=== PATIENT | female | born 1995 | race Caucasian/White ===

== ENCOUNTER 2020-09-28 06:55 | Inpatient (IN) | payer OTHER, SELFPAY ==
--- NOTE | 2020-09-27 21:12 | PM.IMHP ---
H&P: HPI History of Present Illness Date/Time: 09/27/20 21:12 Chief complaint: Pre-admit Narrative: Analilia Fowler is a 25 year old female 25 y/o F presents for IOL at 39w. c/b heterozygous MTFHR mutation,MDD,SAMEERA, Bipolar Review of Systems Review of Systems: All systems reviewed & are unremarkable except as noted in HPI and below Constitutional: Constitutional: Reports no additional constitutional complaints Eyes: Eyes: Reports no additional eye complaints ENT: Reports system reviewed and no additional complaints, except as documented Cardiovascular: Cardiovascular: Reports no additional cardiovascular complaints Respiratory: Respiratory: Reports no additional respiratory complaints Gastrointestinal: Gastrointestinal: Reports no additional gastrointestinal complaints Genitourinary: Genitourinary: Reports no additional female genitourinary complaints Musculoskeletal: Musculoskeletal: Reports no additional musculoskeletal complaints Integumentary/Breasts: Skin/Breast: Reports system reviewed and no additional complaints, except as docu Neurologic: Reports system reviewed and no additional complaints, except as documented Psychiatric: Psychiatric: Reports no additional psychiatric complaints Endocrine: Endocrine: Reports no additional endocrine complaints Hematologic/Lymphatic: Hematologic/Lymphatic: Reports no additional hematologic/lymphatic complaints Allergic/Immunologic: Allergic/Immunologic: Reports no additional allergic/immunologic complaints PMFSH Past Medical History Medical History (Updated 09/27/20 @ 21:31 by Irving Landaverde MD) Bipolar 1 disorder Chlamydia SAMEERA (generalized anxiety disorder) Heterozygous MTHFR mutation C677T IBS (irritable bowel syndrome) MDD (major depressive disorder) PCOS (polycystic ovarian syndrome) 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 Surgical History Surgical History (Updated 09/27/20 @ 21:25 by Irving Landaverde MD) History of knee surgery History of tonsillectomy and adenoidectomy Family History Family History (Updated 09/27/20 @ 21:26 by Irving Landaverde MD) Grandparent Diabetes mellitus Breast cancer Throat cancer Acute myocardial infarction Depression Heart disease Father Hypertension Depression Heart disease Mother Depression Heart disease Social History Social History (Updated 09/27/20 @ 21:27 by Irving Landaverde MD) Smoking packs per day: 1 Smoking cigarettes per day: 20.0 Years smoked: 8 Smoking pack-years: 8.00 Smoking status: Former smoker Tobacco type: cigarettes Second hand tobacco smoke exposure: Yes Alcohol intake: never Substance use: never Substance use type: does not use Living arrangements: with family Occupation/Education: occupation 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terosexual Spiritual care concerns: No Agree to blood products: Yes Meds Home Medications and Allergies Home Medications Medication Instructions Recorded Confirmed Type aspirin [Adult Low Dose Aspirin] 81 mg PO DAILY 09/05/20 09/05/20 History buspirone [BuSpar] 10 mg PO TID 09/05/20 09/05/20 History calcium carbonate-vitamin D3 1 tablet PO BID 09/05/20 09/05/20 History [Calcium 600 + D(3)] cyanocobalamin (vitamin B-12) 1,000 mcg SUBCUT MONTHLY 09/05/20 09/05/20 History folic acid 2 mg PO BID 09/05/20 09/05/20 History prenat.vits,kevin,ows-lyqn-aqbks 1 tablet PO DAILY 09/05/20 09/05/20 History [ #2] progesterone micronized 200 mg PO BID 09/05/20 09/05/20 History Allergies Allergy/AdvReac Type Severity Reaction Status Date / Larry
--- NOTE | 2020-09-27 21:15 | WPDHPUPDATE1 ---
History and Physical Update Update Date/Time: 09/27/20 21:15 History and Physical has been reviewed, including an updated exam of the patient. There are NO changes in the patient's condition. Risks, benefits, and alternatives have been discussed and questions answered. Patient agrees to proceed with procedure. Analilia Fowler is a 25 year old female 25 y/o F presents for IOL at 39w. c/b heterozygous MTFHR mutation,MDD,SAMEERA, Bipolar
--- NOTE | 2020-09-27 21:16 | WPDOBADMIT ---
Obstetrics - Admit Note Admission Note: record reviewed. No pertinent additions to the history and/or any subsequent changes in the physical findings that are not consistent with the expected course of the were found. Additions to the history and/or subsequent changes in the physical findings follow. None. Analilia Fowler is a 25 year old female 25 y/o F presents for IOL at 39w. c/b heterozygous MTFHR mutation,MDD,SAMEERA, Bipolar
[2020-09-28] VITALS (96 sets, daily range): BP systolic 93–150; BP diastolic 43–103; PULSE 58–198; RESP 16; TEMP 36.4–37; O2SAT 77–100; BMI 29.9
--- NOTE | 2020-09-28 07:29 | LDADM ---
This patient, Analilia Fowler, was admitted to Labor/Delivery/Recovery 107 on 09/28/20 at 06:55. Plans for labor, pain management and were discussed with patient. Patient/family oriented to hospital policies and general routines including ID bracelet, bed and alarms, visiting hours, pain management, procedures, bathroom and other care routines, personal items, smoking policy, room service/diet and guest tray routines, security routines, and visiting hours. Patient/Family are encouraged to report perceived risks to care and to ask questions if they do not understand what they are told or what they should do. See OBIX for further documentation.
[2020-09-28 07:43] LABS: Basophils Percent Auto 0.4 % (0.2-1.2); Eosinophils Percent Auto 0.4 % (0-4.4); Hematocrit 36.5 % (37.0-47.0); Hemoglobin 12.7 g/dL (12.0-15.0); Immature Granulocyte Absolute 0.05 K/mm3 (0.00-0.031); Immature Granulocyte Percent A 0.5 % (0-0.5); Lymphocytes Absolute Auto 2.31 K/mm3 (0.9-3.2); Lymphocytes Percent Auto 23.9 % (18.3-44.2); Mean Corpuscular HGB Conc 34.8 g/dl (32-36); Mean Corpuscular Hemoglobin 31.1 pg (26-34); Mean Corpuscular Volume 89.2 fl (80-100); Mean Platelet Volume 11.2 fl (7.4-10.4); Monocytes Absolute Auto 0.9 K/mm3 (0.1-0.6); Neutrophils Absolute Auto 6.3 K/mm3 (1.3-6.7); Neutrophils Percent Auto 65.8 % (45.5-73.1); Platelet Count Result 157 k/mm3 (150-375); Red Blood Count 4.09 M/mm3 (4.2-5.4); Red Cell Distribution Width 13.1 % (11.5-14.5); White Blood Count 9.7 K/mm3 (4.5-10.0)
[2020-09-28] MEDS: LACTATED RINGERS 1,000 ML 125 ML IV CONT ×2 (07:43→08:54)
[2020-09-28] MEDS: OXYTOCIN 30 UNITS/NS 500 ML 30 UNITS/500 ML BAG IV CONT (07:43)
[2020-09-28] MEDS: fentaNYL CITRATE INJ (*CRX) 100 MCG/2 ML VIAL 50 MCG IV PUSH (08:33)
--- NOTE | 2020-09-28 08:48 | WPDANESEPP ---
Anes - Eval Pre Procedure Procedure: labor Epidural Date/Time: 09/28/20 08:48 Surgeon: francois Preop Diagnosis: labor pain Pre Op Diagnosis: Induction of Labor Patient Data Age: 25 Gender: F Height: 1.55 m Weight: 72 kg Last Vital Signs Temp 36.4 C 09/28/20 07:30 Pulse 92 09/28/20 08:45 BP 132/84 09/28/20 08:45 Allergies Allergy/AdvReac Type Severity Reaction Status Date / Time codeine Allergy Unknown Itching Verified 09/05/20 12:36 Home Medications Medication Instructions Recorded Confirmed Type aspirin [Adult Low Dose Aspirin] 81 mg PO DAILY 09/05/20 09/28/20 History buspirone [BuSpar] 10 mg PO TID 09/05/20 09/28/20 History calcium carbonate-vitamin D3 1 tablet PO BID 09/05/20 09/28/20 History [Calcium 600 + D(3)] cyanocobalamin (vitamin B-12) 1,000 mcg SUBCUT MONTHLY 09/05/20 09/28/20 History folic acid 2 mg PO BID 09/05/20 09/28/20 History prenat.vits,kevin,zde-fizc-olgae 1 tablet PO DAILY 09/05/20 09/28/20 History [ #2] progesterone micronized 200 mg PO BID 09/05/20 09/28/20 History Laboratory Tests 09/28/20 09/28/20 07:37 07:38 WBC 9.7 K/mm3 K/mm3 (4.5-10.0) RBC 4.09 M/mm3 L M/mm3 (4.2-5.4) Hgb 12.7 g/dL g/dL (12.0-15.0) Hct 36.5 % L % (37.0-47.0) MCV 89.2 fl fl (80-100) MCH 31.1 pg pg (26-34) MCHC 34.8 g/dl g/dl (32-36) RDW 13.1 % % (11.5-14.5) Plt Count 157 k/mm3 k/mm3 (150-375) MPV 11.2 fl H fl (7.4-10.4) Immature Gran % (Auto) 0.5 % % (0-0.5) Neut % (Auto) 65.8 % % (45.5-73.1) Lymph % (Auto) 23.9 % % (18.3-44.2) Wagoner % (Auto) 9.0 % H % (2.6-8.5) Eos % (Auto) 0.4 % % (0-4.4) Baso % (Auto) 0.4 % % (0.2-1.2) Lymph # (Auto) 2.31 K/mm3 K/mm3 (0.9-3.2) Wagoner # (Auto) 0.9 K/mm3 H K/mm3 (0.1-0.6) Eos # (Auto) 0.0 K/mm3 K/mm3 (0-0.3) Baso # (Auto) 0.0 K/mm3 K/mm3 (0.0-0.1) Abs Immat Gran (auto) 0.05 K/mm3 H K/mm3 (0.00-0.031) Absolute Neuts (auto) 6.3 K/mm3 K/mm3 (1.3-6.7) Absolute Nucleated RBC 0.0 K/mm3 K/mm3 (0.0-0.012) Nucleated RBC % 0.0 % % (0.0-0.2) RPR Pending Patient hx anesthesia problems: none Family hx anesthesia problems: none PMFSH Past Medical History Medical History Bipolar 1 disorder Chlamydia SAMEERA (generalized anxiety disorder) Heterozygous MTHFR mutation C677T IBS (irritable bowel syndrome) MDD (major depressive disorder) PCOS (polycystic ovarian syndrome) 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 Georg[facility] Surgical History Surgical History History of knee surgery History of tonsillectomy and adenoidectomy Family History Family History Grandparent Diabetes mellitus Breast cancer Throat cancer Acute myocardial infarction Depression Heart disease Father Hypertension Depression Heart disease Mother Depression Heart disease Social History Social History Smoking packs per day: 1 Smoking cigarettes per day: 20.0 Years smoked: 8 Smoking pack-years: 8.00 Smoking status: Never smoker Tobacco type: cigarettes Second hand tobacco smoke exposure: Yes Alcohol intake: never Substance use: never Substance use type: does not use Living arrangements: with family Occupation/Education: occupation 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
--- NOTE | 2020-09-28 09:32 | PM.OBPNLAB ---
Pain Control Date/time seen: 09/28/20 09:00 Pain control: tolerating well and narcotic analgesia Pelvic Exam Dilation (cm): 3 Effacement (%): 75 station: -2 Amniotic membrane status: Intact Comments: Rupture membranes performed with amnio hook without difficulty intrauterine pressure catheter placed Contractions Monitor mode: External Contraction frequency: 2 Contraction duration: 45 Contraction pattern: Regular Contraction phase: Contraction Contraction intensity: Strong/Firm Status status: Category l Assessment and Plan Pitocin rate (mU/min): 2 Assessment: active labor and induction ongoing Plan: continuous present management and other (Epidural)
--- NOTE | 2020-09-28 14:10 | PM.OBPRVD ---
OB - Delivery Note Procedure Delivery date: 09/28/20 Procedure: Normal spontaneous vertex vaginal delivery a viable female infant and placenta Repair of first-degree perineal laceration events: Labor Induction Intrapartal events: None Induction method: per pitocin protocol Delivery augmentation: rupture of membranes Delivery monitor: external FHT and internal uterine Route of delivery: Laceration Description: Perineal - 1st Degree Delivery repair: vicryl (2 0) Specimen: Yes (Placenta, cord gases, cord blood) Quantitative Blood Loss: 100 Anesthesia type: Epidural Disposition: floor Complications: None Narrative: Normal spontaneous vertex vaginal delivery a viable female over intact perineum 1 push nuchal cord x1 reduced after delivery anterior shoulder delivered without difficulty infant placed on the maternal abdomen after the cord was reduced around the neck and arm. Spontaneous respirations and cry no observed abnormalities in the examination scores 8 and 9 weight 6 lb 15 oz taken to the nursery stable condition. Cord gas obtained cord blood obtained after cord clamped and cut. Placenta delivered spontaneous intact three-vessel cord uterus contracted well with Pitocin given intravenously. First-degree perineal laceration repaired with 2 0 Vicryl in a running fashion cervix and rectum were checked no sponges left vaginal fistula sphincters intact patient tolerated the procedure well in LDR room 1. 0 7 stable condition Counts correct Complications none VTE prevention not applicable patient ambulatory Antibiotics none Baby Date of : 09/28/20 Time of : 13:56 Weeks of gestation at delivery: 39 Infant gender: Female (Georgiana Zhao) Weight (pounds): 6 Weight (ounces): 15 presentation: vertex position: Left Occiput Anterior Placenta delivery description: Spontaneous and Normal Configuration cord vessel description: 3 Vessels, Nuchal Cord and Around Extremity x1 score one minute: 8 score five minutes: 9
--- NOTE | 2020-09-28 14:16 | PM.OBDSVD ---
DS: Admitting Diagnosis Admitting Diagnosis Admitting Diagnosis: Induction of Labor Term MTHFR mutation SAMEERA M DD Bipolar disorder DS: Discharge Diagnosis Discharge Diagnosis (1) Term delivered: Code(s): O80 - Encounter for full-term uncomplicated delivery Status: Acute (2) Elective induction of labor planned: Status: Acute (3) Bipolar 1 disorder: Code(s): F31.9 - Bipolar disorder, unspecified Status: Acute (4) MDD (major depressive disorder): Code(s): F32.9 - Major depressive disorder, single episode, unspecified Status: Acute (5) SAMEERA (generalized anxiety disorder): Code(s): F41.1 - Generalized anxiety disorder Status: Acute (6) Heterozygous MTHFR mutation C677T: Code(s): E72.12 - Methylenetetrahydrofolate reductase deficiency Status: Acute (7) First degree perineal laceration: Code(s): O70.0 - First degree perineal laceration during delivery Status: Acute OB - DS: Summary Hospital Course Time spent discussing smoking cessation with patient: 3 to 10 minutes OB Procedures : Ultrasound OB Procedures Intrapartum: Spontaneous Vag Delivery OB Procedures: : None Peripartum Data Infant Delivery Method: Natural Vaginal Laceration Description: Perineal - 1st Degree Episiotomy description: None Procedures: Normal spontaneous vertex vaginal delivery complications: none 1: Gender: Female (Georgiana Zhao) Disposition of : home Status at Discharge Functional status at discharge: independent ambulation Overall status at discharge: patient is back to baseline Time Spent with Patient Time attestation: Total time spent providing and/or coordinating discharge services: Time spent: Less than 30 minutes Exam Const: General: cooperative, healthy appearing, comfortable, no acute distress, well developed, alert, awake and Physically active Nutritional Appearance: average body habitus and well nourished Orientation/consciousness: patient oriented x3 Limitations: no limitations HENMT: Head: normal to inspection Eyes: General: appearance normal, both eyes and all related structures Neck: Neck: normal visual inspection and full ROM Chest: Chest palpation & inspection: normal inspection of the chest Breast/axilla inspection: normal inspection of the breasts Resp: Effort & Inspection: normal respiratory effort Auscultation: clear to auscultation bilaterally Cardio: Palpation: normal PMI Rate: regular rate Rhythm: regular rhythm Heart sounds: S1 normal heart sound present and S2 normal heart sound present GI: Inspection: normal to inspection GI Palp: Yes Soft to palpation Auscultation: normal bowel sounds : External Female Exam: normal external appearance Back/Spine/Pelvis: Back: no CVA tenderness Skin: General skin exam: normal color Neuro: General: patient oriented x3, tone normal, moves all extremities, Normal light touch and pain sensation, no meningeal signs, no focal motor deficits and CN's II-XI intact bilaterally Extrem: General: normal to inspection, full ROM, no pedal edema and no calf tenderness Psych: Appearance: grossly normal Mental Status: mental status grossly normal Affect: normal affect Attitude: cooperative Thought process: Normal thought process present Thought content: Yes Normal thought content present Insight: Good insight present (Psych) Judgement: Good judgement present (Psych) DS: Data Data Completed and Pending Labs on day of discharge: Labs from last 24 hours 09/28/20 09/28/20 09/28/20 07:38 07:37 07:37 WBC 9.7 RBC 4.09 L Hgb 12.7 Hct 36.5 L MCV 89.2 MCH 31.1 MCHC 34.8 RDW 13.1 Plt Count 157 MPV 11.2 H Immature Gran % (Auto) 0.5 Neut % (Auto) 65.8 Lymph % (Auto) 23.9 Cook % (Auto) 9.0 H Eos % (Auto) 0.4 Baso % (Auto) 0.4 Lymph # (Auto) 2.31 Cook # (Auto) 0.9 H
[2020-09-28] MEDS: OXYTOCIN 30 UNITS/NS 500 ML 30 UNITS/500 ML BAG 125 UNITS IV CONT (14:31)
[2020-09-28] MEDS: WITCH HAZEL 40 PADS 1 PAD TOPICAL (15:23)
[2020-09-28] MEDS: BENZOCAINE 20% AER SPR (*SP) 56 GM CAN 1 SPRAY TOPICAL (15:23)
[2020-09-28] MEDS: LORATADINE 10 MG TABLET PO (15:23)
--- NOTE | 2020-09-28 16:28 | PC.NURSE ---
Patient transferred to post room #280 via wheelchair. Support person present. Oriented to unit, room, information board, rooming in, admission packet and security measures. Patient verbalizes understanding.
[2020-09-28] MEDS: IBUPROFEN 600 MG TABLET PO ×2 (17:28→23:21)
[2020-09-28] MEDS: ACETAMINOPHEN 325 MG TABLET 650 MG PO (19:10)
[2020-09-29] MEDS: IBUPROFEN 600 MG TABLET PO ×2 (05:11→12:10)
[2020-09-29 05:41] LABS: Hematocrit 32.9 % (37.0-47.0); Hemoglobin 11.2 g/dL (12.0-15.0)
[2020-09-29] MEDS: busPIRone HCL 10 MG TABLET PO (07:32)
[2020-09-29] MEDS: ACETAMINOPHEN 325 MG TABLET 650 MG PO (07:33)
[2020-09-29 07:46] LABS: Rapid Plasma Reagin Non-Reactive (NonReactive)
[2020-09-29 07:50] VITALS: BP 146/94; PULSE 70; RESP 18; TEMP 36.7
--- NOTE | 2020-09-29 09:00 | WPDANLDPN2 ---
Anes-Prog Note L&D Date/Time: 09/29/20 09:00 Comfortable throughout: labor and delivery Neuraxial method: epidural Epidural/Spinal procedure site: clean & non-tender Neuro status: Neuro function grossly intact. Cardiovascular status: normal Respiratory status: normal Airway patency: baseline Mental status: baseline Post-Op hydration status: normal Vital Signs: Last Vital Signs Temp 36.7 C 09/28/20 20:00 Pulse 83 09/28/20 20:00 Resp 16 09/28/20 20:00 BP 137/88 09/28/20 20:00 Pulse Ox 100 09/28/20 20:00 Pain score (VAS): 0 I/O: Intake & Output 09/28/20 09/29/20 09/29/20 23:59 07:59 15:59 Intake Total 500 Balance 500 Post-procedural complaints: none Patient feedback: Patient satisfied with anesthetic care.
--- NOTE | 2020-09-29 10:16 | PM.OBPNVD ---
OB - PN: Subj Subjective Date/time seen: 09/29/20 10:16 Patient comments: no complaints baby status: doing well [place] feeding status: exclusively breast feeding OB - PN: Obj Data Labs CBC & Chem 7: 09/29/20 03:59 Labs: Laboratory Results - last 24 hr 09/28/20 09/29/20 07:37 03:59 Hgb 11.2 L Hct 32.9 L RPR Non-reactive OB - PN A/P Assessment and Plan (1) Term delivered: Code(s): O80 - Encounter for full-term uncomplicated delivery Status: Acute (2) Bipolar 1 disorder: Code(s): F31.9 - Bipolar disorder, unspecified Status: Acute (3) MDD (major depressive disorder): Code(s): F32.9 - Major depressive disorder, single episode, unspecified Status: Acute (4) SAMEERA (generalized anxiety disorder): Code(s): F41.1 - Generalized anxiety disorder Status: Acute Plan day: 1 Plan: routine care, discharge home and follow up 6 weeks Time Spent With Patient Time: Total time spent is greater than 50% in coordination of care (as documented) at patient's floor/unit and/or counseling patient: Review of Systems Review of Systems: All systems reviewed & are unremarkable except as noted in HPI and below Exam Const: General: cooperative, healthy appearing, comfortable, no acute distress, well developed, alert, awake and Physically active Nutritional Appearance: average body habitus and well nourished Orientation/consciousness: patient oriented x3 Limitations: no limitations HENMT: Head: normal to inspection Eyes: General: appearance normal, both eyes and all related structures Neck: Neck: normal visual inspection Chest: Chest palpation & inspection: normal inspection of the chest Resp: Effort & Inspection: normal respiratory effort Cardio: Rate: regular rate Rhythm: regular rhythm GI: Inspection: normal to inspection : External Female Exam: normal external appearance Back/Spine/Pelvis: Back: no CVA tenderness Skin: General skin exam: normal color Neuro: General: patient oriented x3, gait normal, tone normal, moves all extremities and Normal light touch and pain sensation Extrem: General: normal to inspection Psych: Appearance: grossly normal Mental Status: mental status grossly normal Speech and movement: Normal speech and movement present Affect: normal affect Attitude: cooperative Thought process: Normal thought process present Thought content: Yes Normal thought content present Insight: Good insight present (Psych) Judgement: Good judgement present (Psych)
--- NOTE | 2020-09-29 14:35 | PC.NURSE ---
Patient instructed on viewing the discharge video Mother & Baby Care, The First Two Weeks . Patient was given the opportunity and encouraged to ask questions. Patient verbalized understanding of information shared and has been given the mother/baby guide for home reference.
[2020-09-30 13:44] VITALS: BP 170/96; PULSE 55; RESP 16; TEMP 36.8; O2SAT 100
== END 2020-09-29 15:10 | disposition home or self-care (01) | DRG 560 ==
LOC: ANHLDR 14:22 → ANHOB2 16:35
PROVIDERS: Admitting Provider Obstetrics & Gynecology; PCP Emergency Medicine; Visit Provider Obstetrics & Gynecology
DX: O99.284 Endocrine, nutritional and metabolic diseases complicating childbirth (principal); Z37.0 Single live birth; Z3A.39 39 weeks gestation of pregnancy; E72.12 Methylenetetrahydrofolate reductase deficiency; O70.0 First degree perineal laceration during delivery; O99.344 Other mental disorders complicating childbirth; F31.9 Bipolar disorder, unspecified; F41.1 Generalized anxiety disorder; K58.9 Irritable bowel syndrome, unspecified; O99.62 Diseases of the digestive system complicating childbirth; E28.2 Polycystic ovarian syndrome; O69.82X0 Labor and delivery complicated by other cord entanglement, without compression, not applicable or unspecified
CPT/HCPCS: 36415; 85014; 85018; 85025; 86592; 86850; 86900; 86901; 88307; A9270; J2590; J2795; J3010; J7120

== ENCOUNTER 2020-09-30 14:42 | Observation (INO) | payer OTHER, SELFPAY ==
[2020-09-30] VITALS (17 sets, daily range): BP systolic 111–168; BP diastolic 74–107; PULSE 52–80; RESP 16–18; TEMP 36.9–37.1
--- NOTE | 2020-09-30 14:47 | PM.OBPNVD ---
OB - PN: Subj Subjective Date/time seen: 09/30/20 14:47 Patient comments: other (headache) OB - PN A/P Assessment and Plan (1) Preeclampsia in period: Code(s): O14.95 - Unspecified pre-eclampsia, complicating the puerperium Status: Acute Assessment and Plan: magnesium sulfate and labetolol Time Spent With Patient Time: Total time spent is greater than 50% in coordination of care (as documented) at patient's floor/unit and/or counseling patient: Review of Systems Review of Systems: All systems reviewed & are unremarkable except as noted in HPI and below Eyes: Eyes: Reports other visual disturbances ENT: Reports system reviewed and no additional complaints, except as documented Cardiovascular: Cardiovascular: Reports no additional cardiovascular complaints Respiratory: Respiratory: Reports no additional respiratory complaints Gastrointestinal: Gastrointestinal: Reports no additional gastrointestinal complaints Genitourinary: Genitourinary: Reports no additional female genitourinary complaints Musculoskeletal: Musculoskeletal: Reports no additional musculoskeletal complaints Integumentary/Breasts: Skin/Breast: Reports system reviewed and no additional complaints, except as docu Neurologic: Reports system reviewed and no additional complaints, except as documented Psychiatric: Psychiatric: Reports anxiety Endocrine: Endocrine: Reports no additional endocrine complaints Hematologic/Lymphatic: Hematologic/Lymphatic: Reports no additional hematologic/lymphatic complaints Allergic/Immunologic: Allergic/Immunologic: Reports no additional allergic/immunologic complaints Exam Const: General: cooperative HENMT: Head: normal to inspection Eyes: General: appearance normal, both eyes and all related structures Neck: Neck: normal visual inspection Chest: Chest palpation & inspection: normal inspection of the chest Resp: Effort & Inspection: normal respiratory effort Cardio: Rate: tachycardic Rhythm: regular rhythm GI: Inspection: normal to inspection : External Female Exam: normal external appearance Back/Spine/Pelvis: Back: no CVA tenderness Skin: General skin exam: normal color Neuro: General: patient oriented x3, gait normal, tone normal and moves all extremities Extrem: General: normal to inspection, full ROM and no calf tenderness Psych: Appearance: grossly normal Mental Status: mental status grossly normal Speech and movement: Normal speech and movement present Affect: normal affect Attitude: cooperative Thought process: Normal thought process present Thought content: Yes Normal thought content present Insight: Good insight present (Psych) Judgement: Good judgement present (Psych)
[2020-09-30] MEDS: LACTATED RINGERS 1,000 ML 75 ML IV CONT (15:24)
[2020-09-30] MEDS: MAGNESIUM SULF 4 GM/WATER100ML 4 GM/100 ML BAG IVPB (15:25)
[2020-09-30 15:33] LABS: Basophils Percent Auto 0.3 % (0.2-1.2); Eosinophils Absolute Auto 0.1 K/mm3 (0-0.3); Eosinophils Percent Auto 1.1 % (0-4.4); Hematocrit 37.6 % (37.0-47.0); Hemoglobin 13.3 g/dL (12.0-15.0); Immature Granulocyte Absolute 0.07 K/mm3 (0.00-0.031); Immature Granulocyte Percent A 0.6 % (0-0.5); Lymphocytes Absolute Auto 2.84 K/mm3 (0.9-3.2); Lymphocytes Percent Auto 23.6 % (18.3-44.2); Mean Corpuscular HGB Conc 35.4 g/dl (32-36); Mean Corpuscular Hemoglobin 31.4 pg (26-34); Mean Corpuscular Volume 88.9 fl (80-100); Mean Platelet Volume 11.2 fl (7.4-10.4); Monocytes Absolute Auto 0.7 K/mm3 (0.1-0.6); Monocytes Percent Auto 6.1 % (2.6-8.5); Neutrophils Absolute Auto 8.2 K/mm3 (1.3-6.7); Neutrophils Percent Auto 68.3 % (45.5-73.1); Platelet Count Result 207 k/mm3 (150-375); Red Blood Count 4.23 M/mm3 (4.2-5.4); Red Cell Distribution Width 13.2 % (11.5-14.5)
[2020-09-30] MEDS: MAGNESIUM SULF 20GM/WATER500ML 500 ML 50 MG IV CONT (15:53)
[2020-09-30 16:13] LABS: Alanine Aminotransferase 19 U/L (4-35); Albumin Level 3.3 g/dL (3.5-5.1); Alkaline Phosphatase 114 U/L (38-126); Anion Gap 5 mmol/L (8-16); Aspartate Amino Transferase 26 U/L (14-36); Bilirubin,Total 0.2 mg/dL (0.2-1.3); Blood Urea Nitrogen 13 mg/dL (7-17); Calcium 9.2 mg/dL (8.4-10.2); Carbon Dioxide 25 mmol/L (22-30); Chloride 107 mmol/L (98-107); Estimated Glomerular Filt Rate > 60; Glucose 79 mg/dL (65-105); Sodium 137 mmol/L (137-145); Uric Acid 5.1 mg/dL (2.5-7.5)
--- NOTE | 2020-09-30 19:08 | PC.NURSE ---
Dr De Luna informed of no need for Labetalol protocol. OK to start PO Labetalol as ordered.
[2020-09-30] MEDS: LABETALOL HCL 100 MG TABLET PO (20:08)
[2020-09-30] MEDS: ZOLPIDEM TARTRATE (*CRX) 5 MG TABLET PO (23:47)
[2020-10-01] VITALS (14 sets, daily range): BP systolic 115–137; BP diastolic 66–100; PULSE 73–88; RESP 16
[2020-10-01] MEDS: MAGNESIUM SULF 20GM/WATER500ML 500 ML 50 MG IV CONT (02:01)
[2020-10-01] MEDS: LACTATED RINGERS 1,000 ML 75 ML IV CONT (05:05)
[2020-10-01] MEDS: LABETALOL HCL 100 MG TABLET PO ×2 (08:45→18:37)
[2020-10-01] MEDS: POLYSACCHARIDE IRON COMPLEX 150 MG CAPSULE PO (08:45)
[2020-10-01] MEDS: MULTIVIT/MIN/PREN/FOL AC/IRON TABLET 1 TAB PO (08:45)
--- NOTE | 2020-10-01 10:28 | PC.NURSE ---
PLAN OF CARE DISCUSSED WITH DR AGUILA...WILL TURN OFF MAGNESIUM AT 1530 AND CONTINUE THE LABETALOL AT HOME.
--- NOTE | 2020-10-01 14:15 | PC.NURSE ---
PATIENT CALLED OUT C/O INABILITY TO LIFT LEFT ARM, CANNOT HOLD HER EYES OPEN WHILE TALKING, AND JUST DON'T FEEL RIGHT . DISCUSSED PLAN OF CARE WITH DR AGUILA AND WILL TURN OF MAGNESIUM EARLY AND WATCH BP'S UNTIL 6PM.
--- NOTE | 2020-10-01 18:11 | PC.NURSE ---
PLAN OF CARE DISCUSSED WITH DR AGUILA...WILL GIVE EXTRA LABETALOL AND CALL IN TO PHARMACY. HAVE HER CALL [facility] OFFICE FOR F/U ON BP
--- NOTE | 2020-10-01 18:28 | PM.OBDSVD ---
DS: Admitting Diagnosis Admitting Diagnosis Admitting Diagnosis: elevated bp pp DS: Discharge Diagnosis Discharge Diagnosis (1) Preeclampsia in period: Code(s): O14.95 - Unspecified pre-eclampsia, complicating the puerperium Status: Acute OB - DS: Summary Hospital Course Hospital Course: Patient readmitted for preeclampsia. Was placed on magnesium sulfate and PO labetalol 100mg BID started. BPs controlled throughout stay and patient remained stable. OB Procedures : None OB Procedures Intrapartum: Spontaneous Vag Delivery OB Procedures: : None Time Spent with Patient Time attestation: Total time spent providing and/or coordinating discharge services: Discharge Plan Discharge Attending physician on discharge: Chris De Luna Discharging Clinician: Chris De Luna Patient Disposition: Home, Self-Care Activity: may shower and as tolerated Diet: regular Discharge Instructions: OB ANTEPARTUM DISCHARGE INSTRUCTIONS This information is given to help you properly care for yourself at home after your discharge from the hospital. Follow these instructions until your doctor tells you otherwise. DIET: Additional Diet Instructions: ACTIVITY: Additional Activity Instructions: RETURN TO LABOR AND DELIVERY IF YOU HAVE: Additional Reasons to Return to Labor and Delivery: Contractions may feel like abdominal pain, tightening, cramping, pressure, back ache, or thigh ach OTHER INSTRUCTIONS: BLOOD PRESSURE HANDOUT GIVEN FOLLOW-UP CARE: CALL DR LANDAVERDE OFFICE FOR FOLLOW UP BLOOD PRESSURE CHECK AND PLACED ON LABETALOL 100MG TWICE A DAY Valuables released to patient or family? Medications from home returned to patient? IF YOU HAVE ANY QUESTIONS REGARDING THESE INSTRUCTIONS, PLEASE CALL [phone]. IF PROBLEMS ARISE, CALL YOUR PROVIDER. IF EMERGENCY CARE IS NEEDED, [facility] EMERG[facility]Y ROOM IS AVAILABLE 24 HOURS A DAY. Stand Alone Forms: General Discharge Information Follow-up/Referrals: Irving Landaverde MD [Physician] - Discharge Medications: New labetalol 100 mg tablet 100 mg PO Q12H Qty: 60 RF: 1 Continued cyanocobalamin (vitamin B-12) 1,000 mcg/mL Solution 1,000 mcg SUBCUT MONTHLY RF: 0 buspirone 10 mg Tablet 10 mg PO TID RF: 0 folic acid 1 mg Tablet 2 mg PO BID RF: 0 prenat.vits,kevin,hlu-wdni-fljgy Tablet 1 tablet PO DAILY RF: 0 calcium carbonate-vitamin D3 [Calcium 600 + D(3)] 600 mg(1,500mg) -400 unit Tablet 1 tablet PO BID RF: 0 ibuprofen 600 mg Tablet 600 mg PO Q6H Qty: 100 RF: 1 Discontinued aspirin 81 mg Tablet 81 mg PO DAILY RF: 0 Date of admission: 09/30/20 14:42 Primary Care Provider: Nagi You Admitting Provider: Irving Landaverde Attending physician on admission: Irving Landaverde Condition: Stable
== END 2020-10-01 18:34 | disposition home or self-care (01) ==
LOC: ANHOBOP 14:50 → ANHOBPP 14:50
PROVIDERS: Admitting Provider Obstetrics & Gynecology; PCP Emergency Medicine; Visit Provider Obstetrics & Gynecology
DX: O14.95 Unspecified pre-eclampsia, complicating the puerperium (principal)
CPT/HCPCS: 36415; 80053; 84550; 85025; 96365; 96366; 96376; A9270; G0378; G0379; J3475; J7120

== ENCOUNTER 2020-10-03 17:05 | Outpatient (CLI) | payer OTHER, SELFPAY ==
[2020-10-03] VITALS (11 sets, daily range): BP systolic 134–189; BP diastolic 83–97; PULSE 51–55
[2020-10-03] MEDS: LABETALOL HCL 100 MG TABLET 200 MG PO (17:48)
--- NOTE | 2020-10-03 19:12 | PC.NURSE ---
Dr. Landaverde called in for update. He will call in RX to her pharmacy for Labetolol 200 mg every 6 hours which is to be taken around the clock 6-12-6-12.
== END 2020-10-03 19:32 | disposition home or self-care (01) ==
LOC: ANHOBOP 17:08 → ANHOBPP 17:08
PROVIDERS: PCP Emergency Medicine; Visit Provider Obstetrics & Gynecology
DX: Z34.90 Encounter for supervision of normal pregnancy, unspecified, unspecified trimester (principal); Z3A.00 Weeks of gestation of pregnancy not specified
CPT/HCPCS: 99199; A9270

== ENCOUNTER 2020-11-25 22:11 | Emergency (ER) | payer OTHER, SELFPAY ==
[2020-11-25 22:21] VITALS: BP 118/85; PULSE 91; RESP 20; TEMP 36.7; O2SAT 97
--- NOTE | 2020-11-25 22:45 | PC.NURSE ---
patient brought back to ED room H3 with c/o dental pain. see initial notes. no change in condition. resting on stretcher. waiting for orders from provider.
--- NOTE | 2020-11-25 23:13 | ED.DENTAL ---
HPI - Dental/Oral General Chief complaint: Dental/Oral Stated complaint: dental pain Time Seen by Provider: 11/25/20 22:58 Source: patient Mode of arrival: ambulatory Limitations: no limitations History of Present Illness HPI Narrative: 25-year-old female Has a pair of upper bicuspids which have been broken/decayed to the gingiva for quite some time She reports that she saw a dentist about this relatively recently and has 2 see them again in early November for extractions She is having more discomfort from the broken teeth, more hot and cold sensitivity, and presents requesting pain medicine until she can see her dentist She has been taking ibuprofen which is getting less effective Onset (ago): week(s) Related Data Home Medications Medication Instructions Recorded Confirmed folic acid 2 mg PO BID 09/05/20 09/28/20 clonazepam 11/25/20 labetalol 200 mg PO QID 11/25/20 lamotrigine 11/25/20 paroxetine HCl mg PO 11/25/20 Allergies Allergy/AdvReac Type Severity Reaction Status Date / Time codeine Allergy Unknown Itching Verified 11/25/20 22:25 Review of Systems Constitutional: Constitutional: Denies fever(s) ENT: Denies sore throat Respiratory: Respiratory: Denies dyspnea PMF Past Medical History Medical History Bipolar 1 disorder Chlamydia SAMEERA (generalized anxiety disorder) Heterozygous MTHFR mutation C677T IBS (irritable bowel syndrome) MDD (major depressive disorder) PCOS (polycystic ovarian syndrome) 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 Surgical History Surgical History History of knee surgery History of tonsillectomy and adenoidectomy Family History Family History Grandparent Diabetes mellitus Breast cancer Throat cancer Acute myocardial infarction Depression Heart disease Father Hypertension Depression Heart disease Mother Depression Heart disease Social History Social History Smoking packs per day: 1 Smoking cigarettes per day: 20.0 Years smoked: 8 Smoking pack-years: 8.00 Smoking status: Never smoker Tobacco type: cigarettes Second hand tobacco smoke exposure: Yes Alcohol intake: never Substance use: never Substance use type: does not use 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 Gender identity (if verbalized by the patient): Female Spiritual care concerns: No Agree to blood products: Yes Exam Const: General: alert Orientation/consciousness: patient oriented x3 HENMT: Mouth: Yes Normal oral and palatal mucosa present Teeth and gingiva: abnormal tooth and associated gingiva Throat: posterior oropharynx normal Other: Bilateral upper bicuspids are broken/decayed to the gingiva There is mild bilateral maxillary sinus tenderness Eyes: Conjunctivae: conjunctivae normal EOM: EOMs intact bilaterally Neck: Neck: no lymphadenopathy Course Course Emergency Course: Described planned treatment with antibiotics and continuation of ibuprofen While paperwork was being prepared patient elmaloried Pen-Vee K prescription did go to her pharmacy Vital Signs Vital signs: Vital Signs Temperature 36.7 C 11/25/20 22:21 Pulse Rate 91 11/25/20 22:21 Respiratory Rate 20 11/25/20 22:21 Blood Pressure 118/85 11/25/20 22:21 Pulse Oximetry 97 11/25/20 22:21 Temperature 36.7 C 11/25/20 22:21 Pulse Rate 91 11/25/20 22:21 Respiratory Rate 20 11/25/20 22:21 Blood Pressure 118/85 11/25/20 22:21 Pulse Oximetry 97 11/25/20 22:21 Discharge Plan Discharge
--- NOTE | 2020-11-25 23:17 | PC.NURSE ---
patient with call light on. wants to leave. upset that
== END 2020-11-25 23:18 | disposition left against medical advice (07) ==
PROVIDERS: Emergency Provider Emergency Medicine; PCP Emergency Medicine
DX: K02.9 Dental caries, unspecified (principal); F31.9 Bipolar disorder, unspecified; F41.1 Generalized anxiety disorder; K58.9 Irritable bowel syndrome, unspecified; E28.2 Polycystic ovarian syndrome; E72.12 Methylenetetrahydrofolate reductase deficiency; F17.210 Nicotine dependence, cigarettes, uncomplicated
CPT/HCPCS: 99283

== ENCOUNTER → 2021-02-21 06:58 | Outpatient (CLI) | payer OTHER, SELFPAY ==
[2021-02-21 20:47] LABS: SARS-CoV-2 RNA PCR Negative
== END ==
PROVIDERS: PCP Emergency Medicine; Visit Provider Obstetrics & Gynecology
DX: Z01.812 Encounter for preprocedural laboratory examination (principal); Z20.822 Contact with and (suspected) exposure to COVID-19
CPT/HCPCS: C9803; U0003; U0005

== ENCOUNTER 2021-02-24 01:14 | Day surgery (SDC) | payer OTHER, SELFPAY ==
[2021-02-23 09:40] VITALS: BMI 21.5
--- NOTE | 2021-02-23 12:11 | WPDANESEPPF ---
Anes - Initial Pre Proc Eval Procedure: Operation Date: 02/24/21 11:15 Proposed Procedures p Hysteroscopy Dilation and Curettage, Intrauterine Device Removal - Irving Landaverde MD Date/Time: 02/23/21 12:11 Surgeon: Irving Landaverde MD Pre Op Diagnosis: embedded IUD Patient Data Age: 25 Gender: F Height: 1.55 m Weight: 51.7 kg Allergies Allergy/AdvReac Type Severity Reaction Status Date / Time codeine Allergy Unknown Itching Verified 02/23/21 09:36 Home Medications Medication Instructions Recorded Confirmed Type folic acid 2 mg PO BID 09/05/20 02/23/21 History clonazepam 1 mg PO DAILY 11/25/20 02/23/21 History labetalol 200 mg PO BID 11/25/20 02/23/21 History lamotrigine 50 mg PO BID 11/25/20 02/23/21 History citalopram 20 mg PO DAILY 02/23/21 02/23/21 History garlic 300 mg PO DAILY 02/23/21 02/23/21 History ibuprofen 600 mg PO Q6H PRN 02/23/21 02/23/21 History no.144-folic acid 1 tablet PO DAILY 02/23/21 02/23/21 History [] vitamin B complex [B Complex] 1 tablet PO DAILY 02/23/21 02/23/21 History vitamin R78-ugbek acid 1 tablet PO DAILY 02/23/21 02/23/21 History Patient hx anesthesia problems: none Family hx anesthesia problems: none PMFSH Past Medical History Medical History (Updated 02/24/21 @ 07:10 by Irving Landaverde MD) Bipolar 1 disorder Chlamydia SAMEERA (generalized anxiety disorder) Heterozygous MTHFR mutation C677T IBS (irritable bowel syndrome) MDD (major depressive disorder) PCOS (polycystic ovarian syndrome) 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NP[facility] Dr. Georges Vaginal delivery [id number] # fetuses1 Fetus 1Full Term F 6 lbs 15 oz Standard Vaginal Delivery Gestational age39.1 weeks.day AnesthesiaRegional-Epidural Delivery [facility] Surgical History Surgical History (Updated 02/24/21 @ 07:10 by Irving Landaverde MD) H/O oral surgery History of knee surgery History of tonsillectomy and adenoidectomy Family History Family History Grandparent Diabetes mellitus Breast cancer Throat cancer Acute myocardial infarction Depression Heart disease Father Hypertension Depression Heart disease Mother Depression Heart disease Social History Social History Smoking packs per day: 0.5 Smoking cigarettes per day: 10.0 Years smoked: 9 Smoking pack-years: 4.50 Smoking status: Current every day smoker Tobacco type: cigarettes Second hand tobacco smoke exposure: Yes Alcohol intake: current Alcohol use details: VERY RARELY Substance use: never Substance use type: does not use Living arrangements: with family 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 Gender identity (if verbalized by the patient): Female Spiritual care concerns: No Agree to blood products: Yes Anes - Eval Final PreProcedure Day of Procedure 02/23/21 12:11 Patient weight: normal Heart: regular rate and rhythm Lungs: clear to auscultation and normal air movement Airway: Mallampati scale class II Neurological: alert and oriented Last oral intake: >/= 8 hours ASA classification: III Emergent: no Anesthetic plan: proceed Anesthesia type and monitoring: general GIVS and standard monitoring Informed Consent: The patient's anesthetic plan and its attendant risks and benefits were discussed with the patient/family/POA. Questions were solicited and answers provided to the satisfaction of the patient/family/POA.
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
[2021-02-24 09:50] VITALS: BP 121/72; PULSE 82; RESP 16; TEMP 37.8
[2021-02-24] MEDS: LACTATED RINGERS 1,000 ML 30 ML IV CONT (10:00)
[2021-02-24] MEDS: ACETAMINOPHEN 500 MG TABLET 1000 MG PO (10:01)
[2021-02-24 10:14] LABS: Hematocrit 39.3 % (37.0-47.0); Hemoglobin 13.6 g/dL (12.0-15.0)
[2021-02-24] MEDS: BUPIVACAINE HCL 0.25% PF 30 ML VIAL INFILTRATE (11:00)
[2021-02-24] MEDS: ceFAZolin SODIUM 1 GM VIAL 2 GM IV PUSH (11:05)
--- NOTE | 2021-02-24 11:11 | SUR.OPER ---
Hysteroscopy irrigation 900ml IVNS in and 800 ml IVNS out
[2021-02-24 11:22] VITALS: BP 126/79; PULSE 73; RESP 16; O2SAT 100
--- NOTE | 2021-02-24 11:24 | P.OP_ITS ---
Procedure Note - Detailed Date of procedure: 02/24/21 Pre-op diagnosis: embedded IUD Retained IUD, pelvic pain Post-op diagnosis: same (successful iud removal) Procedure performed: Hysteroscopy dilatation and curettage hysteroscopic removal of retained IUD Description of procedure: Informed consent obtained patient was taken to the operating room given IV Thatch general anesthesia LMA was placed and she was placed in the dorsal lithotomy position and then prepped and draped in the usual sterile fashion and a time-out was performed. Speculum was placed in the vagina single-tooth tenaculum placed on the anterior lip of the cervix uterus sounded to 7 cm. Hegar dilation to a 8. Followed by hysteroscopic examination of the uterine cavity using saline as the distending media visualizing retained ParaGard copper IUD. Hysteroscopic grasping forceps was used to remove IUD without difficulty further evaluation of the uterine cavity revealed normal tubal ostia normal but inflamed isthmic normal anterior posterior endometrium and cervix. Sharp curettage of the endometrial cavity and removal of endometrial glands and stroma was then performed. The single-tooth tenaculum was removed hemostasis was excellent. Patient was extubated in the operating room taken recovery room stable condition Implants: None Anesthesia: GETA Surgeon: Irving Landaverde MD Lapping Machine Operator: speech pathology assistant x1 Estimated blood loss (mL): 10 IV fluids (mL): 1,000 Urine output (mL): 100 Drains: No Packing: No Pathology: yes (ParaGard copper IUD and endometrial curettings) Complications: None Condition: stable Disposition: same day Findings: Retained copper IUD ParaGard removed successfully normal tubal ostia normal anterior posterior endometrium normal cervix normal is hemostasis excess Counts correct Complications none VTE STDs Antibiotic prophylaxis Ancef 2 g To recovery room stable condition
[2021-02-24] MEDS: fentaNYL CITRATE INJ (*CRX) 100 MCG/2 ML VIAL 25 MCG IV PUSH ×4 (11:31→11:50)
[2021-02-24 11:50] VITALS: BP 130/85; PULSE 61; RESP 16; O2SAT 100
[2021-02-24 12:10] VITALS: BP 132/87; PULSE 55; RESP 16; O2SAT 100
== END 2021-02-24 12:23 | disposition home or self-care (01) ==
PROVIDERS: Anesthesiology; PCP Emergency Medicine; Visit Provider Obstetrics & Gynecology
PROC: 0U5B8ZZ Destruction of Endometrium, Via Natural or Artificial Opening Endoscopic (ICD-10-PCS; CPT 58563; principal; 2021-02-24 11:15)
DX: T83.39XA Other mechanical complication of intrauterine contraceptive device, initial encounter (principal); R10.2 Pelvic and perineal pain; Z91.410 Personal history of adult physical and sexual abuse; F31.9 Bipolar disorder, unspecified; F41.1 Generalized anxiety disorder; M06.9 Rheumatoid arthritis, unspecified; F17.210 Nicotine dependence, cigarettes, uncomplicated; X58.XXXA Exposure to other specified factors, initial encounter
CPT/HCPCS: 58562; 36415; 85014; 85018; 88305; A9270; J0690; J2250; J2704; J3010; J7030; J7120

== ENCOUNTER 2021-07-28 14:59 | Emergency (ER) | payer OTHER, SELFPAY ==
[2021-07-28 16:19] VITALS: BP 142/91; PULSE 99; RESP 14; TEMP 36.9; O2SAT 99
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
[2021-07-28] MEDS: SILVER SULFADIAZINE 1% CR 50 GM JAR (*BKC) 1 APPLIC TOPICAL (18:15)
[2021-07-28 18:30] VITALS: BP 136/84; PULSE 88; RESP 16; O2SAT 99
== END 2021-07-28 18:30 | disposition home or self-care (01) ==
PROVIDERS: Emergency Provider Emergency Medicine; PCP Emergency Medicine
DX: T24.231A Burn of second degree of right lower leg, initial encounter (principal); T31.0 Burns involving less than 10% of body surface; E28.2 Polycystic ovarian syndrome; M06.9 Rheumatoid arthritis, unspecified; K58.9 Irritable bowel syndrome, unspecified; F31.9 Bipolar disorder, unspecified; F41.1 Generalized anxiety disorder; F07.89 Other personality and behavioral disorders due to known physiological condition; F17.210 Nicotine dependence, cigarettes, uncomplicated; X16.XXXA Contact with hot heating appliances, radiators and pipes, initial encounter
CPT/HCPCS: 16020; 99283; A9270